=== PATIENT | male | born 1950 | race Caucasian/White ===

== ENCOUNTER 2021-04-20 19:01 | Emergency (ER) | payer MEDICARE, OTHER ==
[2021-04-20] MEDS ORDERED: Labetalol 20 MG/4 ML Syringe IVPUSH ONE ×2 (19:02→19:29)
[2021-04-20] MEDS ORDERED: Bacitracin Oint 1 GM U/D Packet TOP ONE ×2 (19:02→19:05)
[2021-04-20] MEDS ORDERED: Lidocaine 1% 30 ML SDV INJECT ONE ×2 (19:02→19:05)
--- NOTE | 2021-04-20 19:23 | CR ---
PROCEDURE INFORMATION: Exam: XR Chest Exam date and time: 04/20/2021 7:09 PM Age: 71 years old Clinical indication: Other: Suicide attempt, HX als TECHNIQUE: Imaging protocol: XR of the chest. Views: 1 view. COMPARISON: CR Chest 1V Frontal 03/03/2019 4:18 PM FINDINGS: Lungs: Unremarkable. No consolidation. Pleural spaces: Unremarkable. No pleural effusion. No pneumothorax. Heart/Mediastinum: Tortuous thoracic aorta, similar to prior allowing for differences in technique. No cardiomegaly. Bones/joints: No evidence of acute osseous abnormality. IMPRESSION: No radiographically apparent acute abnormality in the chest.
[2021-04-20 19:31] LABS: ANION GAP 11.7 mEq/L (7-13); CHLORIDE,CL 101 mmol/L (98-107); SODIUM,NA 141 mmol/L (136-145)
--- NOTE | 2021-04-20 20:57 | EDM.PDOCBH ---
ED HPI GENERAL MEDICAL PROBLEM - General Stated Complaint: TRIED TO TAKE HIS LIFE, HAS ALS Time Seen by Provider: 04/20/21 19:05 Source of Information: Reports: Patient, EMS, Family History Limitations: Reports: Physical Impairment - History of Present Illness INITIAL COMMENTS - FREE TEXT/NARRATIVE: ED via [facility], report of self harm, cut both wrist. Patient found sitting in shower, unsure how long patient had been in shower or exact time of injury. and son absent from home for short time this afternoon. When home patient found. Some blood outside shower and some around patient. reports "not huge amount, Patient removed from shower and towels applied to wrists and bleeding easily controlled. reports patient diagnosed with ALS approximately one year and recently noting more decline in status. Non verbal, signs with board at home for communication. Requires almost constant suctioning to control secretions. Has home "vent" Sleeping poorly, past few days more weakness in legs and arms. Hospice scheduled for consult on Monday. Patient admits prior thoughts but has not had plan. Nods with and thumbs up that todays incident was impulsive. Denies falling Denied taking any other pills or medication. G- tube for feedings and medications. - Related Data Allergies Allergy/AdvReac Type Severity Reaction Status Date / Time No Known Allergies Allergy Verified 03/03/19 16:03 Home Meds: Home Meds Aspirin [Ecotrin EC] 162 mg PO DAILY 03/03/19 [History] Celecoxib [CeleBREX] 100 mg PO DAILY 03/03/19 [History] Finasteride 5 mg PO DAILY 03/03/19 [History] Metoprolol Succinate 25 mg PO DAILY 03/03/19 [History] Rosuvastatin [Crestor] 10 mg PO DAILY 03/03/19 [History] Tamsulosin [Flomax] 0.4 mg PO DAILY 03/03/19 [History] tadalafiL [Cialis] 5 mg PO ASDIRECTED PRN 03/03/19 [History] Dextromethorphan HBr/Quinidine [Nuedexta 20-10 MG] 1 cap PO ASDIRECTED 04/20/21 [History] Riluzole 50 mg PO ASDIRECTED 04/20/21 [History] Past Medical History Cardiovascular History: Reports: CAD Genitourinary History: Reports: Other (See Below) Other Genitourinary History: benign bladder tumor - Past Surgical History Cardiovascular Surgical History: Reports: Coronary Artery Stent Social & Family History - Caffeine Use Caffeine Use: Reports: Coffee ED ROS GENERAL - Review of Systems Review Of Systems: Comprehensive ROS is negative, except as noted in HPI. ED EXAM, BEHAVIORAL HEALTH - Physical Exam Exam: See Below Exam Limited By: No Limitations General Appearance: Alert, Anxious, Mild Distress, Thin, Cachetic Eye Exam: Bilateral Eye: EOMI Ears: Normal External Exam, Hearing Grossly Normal, Normal TMs Nose: Normal Inspection Throat/Mouth: Normal Inspection. No: Normal Voice Head: Atraumatic, Normocephalic Neck: Non-Tender, Limited Range of Motion, Other (weak, poor muscle control to hold head up) Respiratory/Chest: No Respiratory Distress, Lungs Clear, Decreased Breath Sounds, Other (ocassional weak non productive cough, frequent oral suctioning per self with yankeur) Cardiovascular: Normal Peripheral Pulses, Regular Rate, Rhythm GI/Abdominal: Normal Bowel Sounds, Soft Neurological: Alert, Oriented x 3. No: Normal Reflexes Psychiatric: Flat Affect, Restless, Tearful, Poor Eye Contact, Withdrawn, Suicidal Thoughts Skin Exam: Cool, Signs of self injury, Wound/incision (left inner wrist distal laceration 4cm proximal 5cm, right wrist 4cm superficial horizontal) COURSE, BEHAVIORAL HEALTH COMP - Course Orders, Labs, Meds: Laboratory Tests 04/20/21 04/20/21 04/20/21 Range/Units 19:00 19:00 19:00 WBC 12.7 H (5.0-10.0) 10^3/uL RBC 3.79 L (4.6-6.2) 10^6/uL Hgb 12.3 L D (14.0-18.0) g/dL Hct 36.3 L (40.0-54.0) % MCV 95.8 D (80-100) fL MCH 32.5 (27.0-34.0) pg MCHC 33.9 (33.0-35.0) g/dL Plt Count 239 D (150-450) 10^3/uL Neut % (Auto) 89.4 H (42.2-75.2) % Lymph % (Auto) 4.0 L (20.5-50.1) % Isabela % (Auto) 6.1 (2-8) % Eos % (Auto) 0.3 L (1.0-3.0) % Baso % (Auto) 0.2 (0.0-1.0) % PT 11.1 (9.0-12.0) SEC INR 1.1 (0.9-1.2) Sodium 141 (136-145) mmol/L Potassium 3.7 (3.5-5.1) mmol/L Chloride 101 (98-107) mmol/L Carbon Dioxide 32 (21-32) mmol/L Anion Gap 11.7 (7-13) mEq/L BUN 16 (7-18) mg/dL Creatinine 0.61 L (0.70-1.30) mg/dL Est Cr Clr Drug Dosing TNP Estimated GFR (MDRD) > 60 BUN/Creatinine Ratio 26.2 (No establ ref range) Glucose 137 H (70-99) mg/dL Calcium 8.6 (8.5-10.1) mg/dL Total Bilirubin 0.7 (0.2-1.0) mg/dL AST 24 (15-37) U/L ALT 39 (16-63) U/L Alkaline Phosphatase 53 (46-116) U/L Total Protein 6.2 L (6.4-8.2) g/dL Albumin 3.5 (3.4-5.0) g/dL Globulin 2.7 Albumin/Globulin Ratio 1.3 Salicylates (2.8-20(Therapeutic)) mg/dL Acetaminophen (10-30 (Therapeutic)) ug/mL 04/20/21 04/20/21 Range/Units 19:00 19:00 WBC (5.0-10.0) 10^3/uL RBC (4.6-6.2) 10^6/uL Hgb (14.0-18.0) g/dL Hct (40.0-54.0) % MCV (80-100) fL MCH (27.0-34.0) pg MCHC (33.0-35.0) g/dL Plt Count (150-450) 10^3/uL Neut % (Auto) (42.2-75.2) % Lymph % (Auto) (20.5-50.1) % Isabela % (Auto) (2-8) % Eos % (Auto) (1.0-3.0) % Baso % (Auto) (0.0-1.0) % PT (9.0-12.0) SEC INR (0.9-1.2) Sodium (136-145) mmol/L Potassium (3.5-5.1) mmol/L Chloride (98-107) mmol/L Carbon Dioxide (21-32) mmol/L Anion Gap (7-13) mEq/L BUN (7-18) mg/dL Creatinine (0.70-1.30) mg/dL Est Cr Clr Drug Dosing Estimated GFR (MDRD) BUN/Creatinine Ratio (No establ ref range) Glucose (70-99) mg/dL Calcium (8.5-10.1) mg/dL Total Bilirubin (0.2-1.0) mg/dL AST (15-37) U/L ALT (16-63) U/L Alkaline Phosphatase (46-116) U/L Total Protein (6.4-8.2) g/dL Albumin (3.4-5.0) g/dL Globulin Albumin/Globulin Ratio Salicylates < 2.8 L (2.8-20(Therapeutic)) mg/dL Acetaminophen 0 L (10-30 (Therapeutic)) ug/mL Medications Discontinued Medications Generic Name Dose Route Start Last Admin Trade Name Freq PRN Reason Stop Dose Admin Bacitracin 1 dose 04/20/21 19:05 04/20/21 20:57 Bacitracin Oint 1 Gm U/D Packet TOP 04/20/21 19:06 Not Given ONETIME ONE Labetalol HCl 10 mg 04/20/21 19:29 04/20/21 21:11 Labetalol 20 Mg/4 Ml Syringe IVPUSH 04/20/21 19:30 Not Given ONETIME ONE Lidocaine HCl 30 ml 04/20/21 19:05 04/20/21 20:57 Lidocaine 1% 30 Ml Sdv INJECT 04/20/21 19:06 Not Given ONETIME ONE Re-Assessment/Re-Exam: Crisis Counselor here, visit with patient and family. prefers to take patient home. and son in home and will close watch to patient. Patient denies further plan. Straight edge razor blade found with patient when dressing for discharge, stuck to buttock between blanket used to transfer from home. fmaily supportive. Attentive in ED. Departure - Departure Time of Disposition: 20:48 Disposition: Home, Self-Care 01 Condition: Fair Clinical Impression: Suicidal ideation, ALS (amyotrophic lateral sclerosis), Laceration - Discharge Information *PRESCRIPTION DRUG MONITORING PROGRAM REVIEWED*: No *COPY OF PRESCRIPTION DRUG MONITORING REPORT IN PATIENT NAHUM: No Instructions: Suicidal Feelings: How to Help Yourself Referrals: PCP,None [Primary Care Provider] - Forms: ED Department Discharge Additional Instructions: keep wounds clean and dry wash gently soap and water twice daily cover with dressing sutures out 10-14 days in clinic follow up sooner if redness swelling or drainage from wound Hospice consult tomorrow as scheduled Continue home medications recheck clinic this week if noting increased secretions, monitor for fever Urgent follow up if difficulty breathing ED LACERATION/WOUND PROCEDURES - Laceration/Wound Repair Left Distal Wrist Laceration/Wound Length In cm: 3 (left distal inner wrist) Appearance: Superficial Distal NVT: Neuro & Vascular Intact Anesthetic Type: Local Local Anesthesia - Lidocaine (Xylocaine): 1% Plain Local Anesthetic Volume: 1cc Skin Prep: Chlorhexidine (Hibiciens), Saline Suture Size: 4-0 # of Sutures: 4 Suture Type: Nylon, Interrupted Drain Placement: No Sterile Dressing Applied: Nurse Tetanus Status Addressed: Yes Complications: None Left Proximal Wrist Laceration/Wound Length In cm: 5 Appearance: Superficial Anesthetic Type: Local Local Anesthesia - Lidocaine (Xylocaine): 1% Plain Local Anesthetic Volume: 2cc Skin Prep: Chlorhexidine (Hibiciens), Saline Suture Size: 4-0 # of Sutures: 6 Suture Type: Interrupted Sterile Dressing Applied: Nurse Right Wrist Laceration/Wound Length In cm: 4 Appearance: Superficial, Clean Distal NVT: Neuro & Vascular Intact Anesthetic Type: Local Local Anesthesia - Lidocaine (Xylocaine): 1% Plain Local Anesthetic Volume: 1cc Skin Prep: Chlorhexidine (Hibiciens), Saline Suture Size: 4-0 # of Sutures: 5 Suture Type: Nylon, Interrupted Sterile Dressing Applied: Nurse Tetanus Status Addressed: Yes Complications: None
== END 2021-04-20 21:47 | disposition home or self-care (01) ==
LOC: DL.ED 19:01
DX: S51.811A Laceration without foreign body of right forearm, initial encounter (principal); S51.812A Laceration without foreign body of left forearm, initial encounter; G12.21 Amyotrophic lateral sclerosis; I25.10 Atherosclerotic heart disease of native coronary artery without angina pectoris; Z79.82 Long term (current) use of aspirin; Z79.899 Other long term (current) drug therapy; X78.8XXA Intentional self-harm by other sharp object, initial encounter; Y92.009 Unspecified place in unspecified non-institutional (private) residence as the place of occurrence of the external cause
CPT/HCPCS: 12004; 36415; 71045; 80053; 80143; 80179; 85025; 85610; 99285; J3490